=== PATIENT | male | born 1970 | race Caucasian/White ===

== ENCOUNTER 2025-01-01 20:00 | Emergency (ER) | payer OTHER ==
[~2025-01-01] VITALS: Ht 177.8 cm; Wt 65.8 kg
[2025-01-01 20:17] LABS: BASOPHILS 1.3 % (0-2); EOSINOPHILS 5.5 % (0-6); HEMATOCRIT 36.9 % (35.0-50.0); HEMOGLOBIN 12.7 g/dL (12.0-18.0); LYMPHOCYTES 29.7 % (24-44); MCH 30.5 (27-36); MCHC 34.4 g/dl (30-36); MCV 88.7 fl (81-99); MONOCYTES 11.8 % (0-12); NEUTROPHILS 51.7 % (39-80); PLATELET COUNT 416 K/uL (140-440); RBC 4.16 M/ul (4.3-5.7); RDW 14.9 (10.5-15.0)
[2025-01-01 20:33] LABS: ALBUMIN 3.6 g/dL (3.4-5.0); ALBUMIN/GLOBULIN RATIO 0.86 (1.1-2.4); ALKALINE PHOSPHATASE 84 U/L (46-116); ALT (SGPT) 41 U/L (14-59); ANION GAP 12.7 (7-21); AST (SGOT) 34 U/L (15-37); BILIRUBIN, TOTAL 0.3 mg/dL (0.2-1.0); BUN/CREATININE RATIO 25.97 (6.0-28.6); CALCIUM 9.3 mg/dL (8.5-10.1); CARBON DIOXIDE 29 mmol/L (21-32); CHLORIDE 101 mmol/L (98-107); CREATININE, SERUM 0.77 mg/dL (0.70-1.30); GLOMERULAR FILTRATION RATE,EST 106 mL/min (>60); MAGNESIUM 1.8 mg/dL (1.8-2.4); POTASSIUM 4.7 mmol/L (3.5-5.1); PROTEIN, TOTAL 7.8 g/dL (6.4-8.2); UREA NITROGEN 20 mg/dL (7-18)
[2025-01-01 21:17] LABS: CORONAVIRUS COVID-19 AG NEGATIVE (NEGATIVE); INFLUENZA A AG NEGATIVE (NEGATIVE); INFLUENZA B AG NEGATIVE (NEGATIVE)
[2025-01-01] MEDS ORDERED: atenoloL 50 MG TAB PO ONE (23:00)
[2025-01-01] MEDS ORDERED: hydroCHLOROthiazide 25 MG TAB PO ONE (23:00)
[2025-01-01] MEDS ORDERED: lisinopriL 20 MG TAB PO ONE (23:00)
--- OUTSIDE RECORDS SUMMARY | 2025-01-01 23:00 | XMS ---
PreManage Notification: KARLI VALADEZ Security Experience Specialist Events No recent Security Events currently on file CRITERIA MET - 6 ED Visits in 6 Months - [facility] - 2 Visits in 30 Days - [facility] - 3 Facilities in 90 Days CARE PROVIDERS CURT MORENO [facility] PHONE: [phone] [facility], Clinic/Center: [facility] PHONE: Unknown Germania has no Care Guidelines for this patient. E.Leanne VISIT COUNT (12 MO.) [address] [place] [address]. 3 [facility]. 2 [facility]. 1 [facility] 1 [facility] TOTAL 19 NOTE: Visits indicate total known visits. ED/UCC VISIT TRACKING (12 MO.) 01/01/2025 20:01 [facility] TYPE: Emergency COMPLAINT: - CHEST PAIN 12/28/2024 22:40 [facility] TYPE: Emergency COMPLAINT: - F10.939 DIAGNOSES: - Alcohol use, unspecified with withdrawal, unspecified - Unspecified abdominal pain - M32 12/24/2024 07:54 [facility] TYPE: Emergency COMPLAINT: - Seizure like activity DIAGNOSES: - Anesthesia of skin - Headache, unspecified - Other stimulant abuse, uncomplicated - Seizure like activity - Weakness 12/01/2024 17:01 [facility] TYPE: Emergency COMPLAINT: - EMS- Chest Pain DIAGNOSES: - Alcohol abuse, uncomplicated - Chest pain, unspecified - Alcohol Intoxication - EMS- Chest Pain 11/23/2024 19:27 [facility] TYPE: Emergency DIAGNOSES: - M30 11/18/2024 15:57 [facility] TYPE: Emergency COMPLAINT: - Abdominal pain DIAGNOSES: - Other psychoactive substance abuse, uncomplicated - Abdominal pain - Addiction Problem 10/29/2024 19:29 [facility] TYPE: Emergency COMPLAINT: - Anxiety DIAGNOSES: - Other psychoactive substance abuse, uncomplicated - Weakness - Addiction Problem - Anxiety 10/28/2024 20:34 [facility] TYPE: Emergency COMPLAINT: - Medical Screening DIAGNOSES: - Other stimulant abuse, uncomplicated - Unspecified convulsions - Medical Screening 07/14/2024 18:50 [facility] TYPE: Emergency COMPLAINT: - Groin Pain DIAGNOSES: - Groin Pain 07/02/2024 21:04 [facility] TYPE: Emergency COMPLAINT: - R07.9 DIAGNOSES: - Chest pain, unspecified - Solitary pulmonary nodule - m30 06/08/2024 19:23 [facility] TYPE: Emergency COMPLAINT: - medic DIAGNOSES: - Other chest pain - Palpitations - Person with feared health complaint in whom no diagnosis is made - Chest Pain - medic 06/05/2024 20:25 [facility] TYPE: Emergency COMPLAINT: - Syncope DIAGNOSES: - Alcohol dependence with intoxication, uncomplicated - Other specified abnormal findings of blood chemistry - Personal history of pulmonary embolism - Syncope and collapse - Syncope 06/03/2024 13:59 [facility] TYPE: Emergency COMPLAINT: - Seizures DIAGNOSES: - Abnormal electrocardiogram [ECG] [EKG] - Other specified abnormal findings of blood chemistry - Syncope and collapse - Weakness - possible seizure - Seizures 05/31/2024 15:48 [facility] TYPE: Emergency COMPLAINT: - Seizures, Combative DIAGNOSES: - Seizures - Seizures, Combative 04/18/2024 17:13 [facility] TYPE: Emergency COMPLAINT: - R- withdrawal DIAGNOSES: - Alcohol Problem - R- withdrawal 04/09/2024 20:03 [facility] TYPE: Emergency COMPLAINT: - Chest Pain DIAGNOSES: - Alcohol use, unspecified with intoxication, uncomplicated - Cannabis use, unspecified, uncomplicated - Encounter for screening, unspecified - Chest Pain - Medical Screening 04/07/2024 11:54 [facility] TYPE: Emergency COMPLAINT: - Abdominal pain DIAGNOSES: - Other specified abnormal findings of blood chemistry - Other stimulant abuse, uncomplicated - Abdominal pain - Chest Pain 04/05/2024 01:54 [facility] TYPE: Emergency COMPLAINT: - Altered Mental Status DIAGNOSES: - Altered mental status, unspecified - Epilepsy, unspecified, intractable, without status epilepticus - Other stimulant abuse, uncomplicated - Altered Mental Status 01/28/2024 13:28 [facility] TYPE: Emergency COMPLAINT: - Addiction Problem DIAGNOSES: - Other stimulant abuse, uncomplicated - Addiction Problem INPATIENT VISIT TRACKING (12 MO.) 11/23/2024 19:27 [facility] TYPE: Neurology COMPLAINT: - R53.1 DIAGNOSES: - Anesthesia of skin - Weakness 06/03/2024 20:17 [facility] TYPE: Medical Surgical COMPLAINT: - Seizures DIAGNOSES: - Abnormal electrocardiogram [ECG] [EKG] - Other pulmonary embolism without acute cor pulmonale - Other specified abnormal findings of blood chemistry - Weakness 05/31/2024 20:04 [facility] TYPE: Intensive Care COMPLAINT: - Seizures, Combative DIAGNOSES: - Acute respiratory failure with hypoxia - Alcohol abuse, uncomplicated - Other stimulant abuse, uncomplicated - Unspecified convulsions [email or web address]
[2025-01-01] MEDS ORDERED: AMOXICILLIN/CLAVULANATE K 875 MG HOME.PACK PO ONE (23:15)
[2025-01-01] MEDS ORDERED: AMOX TR-K CLV1 EAC1 PO ×2 (23:15)
[2025-01-01 23:27] VITALS: BP 137/97
--- NOTE | 2025-01-02 12:43 | EKG ---
[facility] [address] [place] [address] Signed Normal sinus rhythm Normal ECG No previous ECGs available Confirmed by Ismael Durham MD () on 01/02/2025 12:42:49 PM Electronically Signed By: ISMAEL DURHAM MD 01/02/25 1243 PATIENT NAME: KARLI VALADEZ Electrocardiogram DATE OF : 68 PHYSICIAN: ISMAEL DURHAM MD REPORT #: [id number] REPORT IS CONFIDENTIAL AND NOT TO BE RELEASED WITHOUT AUTHORIZATION
== END 2025-01-01 23:25 | disposition home or self-care (01) ==
LOC: ED 20:00
PROVIDERS: Internal Medicine
DX: J18.9 Pneumonia, unspecified organism (principal); R07.89 Other chest pain; Z86.73 Personal history of transient ischemic attack (TIA), and cerebral infarction without residual deficits; Z86.711 Personal history of pulmonary embolism; Z91.013 Allergy to seafood; Z91.041 Radiographic dye allergy status; Z88.8 Allergy status to other drugs, medicaments and biological substances
CPT/HCPCS: 36415; 71045; 80053; 83735; 83880; 84484; 85025; 93005; 93010; 99285-25

== ENCOUNTER 2025-01-04 15:48 | Emergency (ER) | payer OTHER ==
[~2025-01-04] VITALS: Ht 177.8 cm; Wt 65.3 kg
[~2025-01-04 15:48] MED LIST: AMOX TR-K CLV1 EAC1 PO
--- OUTSIDE RECORDS SUMMARY | 2025-01-04 15:54 | XMS ---
PreManage Notification: KARLI VALADEZ Security Hospital Cleaner Events No recent Security Events currently on file CRITERIA MET - 6 ED Visits in 6 Months - [facility] - 2 Visits in 30 Days - [facility] - 3 Facilities in 90 Days CARE PROVIDERS CURT MORENO [facility] PHONE: [phone] [facility], Clinic/Center: [facility] PHONE: Unknown Germania has no Care Guidelines for this patient. E.Leanne VISIT COUNT (12 MO.) [address] [place] [address] [facility] 2 [facility] 2 [facility]. 1 [facility] TOTAL 20 NOTE: Visits indicate total known visits. ED/UCC VISIT TRACKING (12 MO.) 01/04/2025 15:48 [facility] TYPE: Emergency COMPLAINT: - ALCOHOL WITHDRAWL 01/01/2025 20:01 [facility] TYPE: Emergency COMPLAINT: - CHEST PAIN DIAGNOSES: - Allergy status to other drugs, medicaments and biological substances - Allergy to seafood - Other chest pain - Personal history of pulmonary embolism - Personal history of transient ischemic attack (TIA), and cerebral infarction without residual deficits - Pneumonia, unspecified organism - Radiographic dye allergy status 12/28/2024 22:40 [facility] TYPE: Emergency COMPLAINT: - F10.939 DIAGNOSES: - Alcohol use, unspecified with withdrawal, unspecified - Unspecified abdominal pain - M32 12/24/2024 07:54 [facility] TYPE: Emergency COMPLAINT: - Seizure like activity DIAGNOSES: - Anesthesia of skin - Headache, unspecified - Other stimulant abuse, uncomplicated - Seizure like activity - Weakness 12/01/2024 17:01 [facility] TYPE: Emergency COMPLAINT: - EMS- Chest Pain DIAGNOSES: - Alcohol abuse, uncomplicated - Chest pain, unspecified - Alcohol Intoxication - EMS- Chest Pain 11/23/2024 19:27 [facility] TYPE: Emergency DIAGNOSES: - M30 11/18/2024 15:57 [facility] TYPE: Emergency COMPLAINT: - Abdominal pain DIAGNOSES: - Other psychoactive substance abuse, uncomplicated - Abdominal pain - Addiction Problem 10/29/2024 19:29 [facility] TYPE: Emergency COMPLAINT: - Anxiety DIAGNOSES: - Other psychoactive substance abuse, uncomplicated - Weakness - Addiction Problem - Anxiety 10/28/2024 20:34 [facility] TYPE: Emergency COMPLAINT: - Medical Screening DIAGNOSES: - Other stimulant abuse, uncomplicated - Unspecified convulsions - Medical Screening 07/14/2024 18:50 [facility] TYPE: Emergency COMPLAINT: - Groin Pain DIAGNOSES: - Groin Pain 07/02/2024 21:04 [facility] TYPE: Emergency COMPLAINT: - R07.9 DIAGNOSES: - Chest pain, unspecified - Solitary pulmonary nodule - m30 06/08/2024 19:23 [facility] TYPE: Emergency COMPLAINT: - medic DIAGNOSES: - Other chest pain - Palpitations - Person with feared health complaint in whom no diagnosis is made - Chest Pain - medic 06/05/2024 20:25 [facility] TYPE: Emergency COMPLAINT: - Syncope DIAGNOSES: - Alcohol dependence with intoxication, uncomplicated - Other specified abnormal findings of blood chemistry - Personal history of pulmonary embolism - Syncope and collapse - Syncope 06/03/2024 13:59 [facility] TYPE: Emergency COMPLAINT: - Seizures DIAGNOSES: - Abnormal electrocardiogram [ECG] [EKG] - Other specified abnormal findings of blood chemistry - Syncope and collapse - Weakness - possible seizure - Seizures 05/31/2024 15:48 [facility] TYPE: Emergency COMPLAINT: - Seizures, Combative DIAGNOSES: - Seizures - Seizures, Combative 04/18/2024 17:13 [facility] TYPE: Emergency COMPLAINT: - R- withdrawal DIAGNOSES: - Alcohol Problem - R- withdrawal 04/09/2024 20:03 [facility] TYPE: Emergency COMPLAINT: - Chest Pain DIAGNOSES: - Alcohol use, unspecified with intoxication, uncomplicated - Cannabis use, unspecified, uncomplicated - Encounter for screening, unspecified - Chest Pain - Medical Screening 04/07/2024 11:54 [facility] TYPE: Emergency COMPLAINT: - Abdominal pain DIAGNOSES: - Other specified abnormal findings of blood chemistry - Other stimulant abuse, uncomplicated - Abdominal pain - Chest Pain 04/05/2024 01:54 [facility] TYPE: Emergency COMPLAINT: - Altered Mental Status DIAGNOSES: - Altered mental status, unspecified - Epilepsy, unspecified, intractable, without status epilepticus - Other stimulant abuse, uncomplicated - Altered Mental Status 01/28/2024 13:28 [facility] TYPE: Emergency COMPLAINT: - Addiction Problem DIAGNOSES: - Other stimulant abuse, uncomplicated - Addiction Problem INPATIENT VISIT TRACKING (12 MO.) 11/23/2024 19:27 [facility] TYPE: Neurology COMPLAINT: - R53.1 DIAGNOSES: - Anesthesia of skin - Weakness 06/03/2024 20:17 [facility] TYPE: Medical Surgical COMPLAINT: - Seizures DIAGNOSES: - Abnormal electrocardiogram [ECG] [EKG] - Other pulmonary embolism without acute cor pulmonale - Other specified abnormal findings of blood chemistry - Weakness 05/31/2024 20:04 [facility] TYPE: Intensive Care COMPLAINT: - Seizures, Combative DIAGNOSES: - Acute respiratory failure with hypoxia - Alcohol abuse, uncomplicated - Other stimulant abuse, uncomplicated - Unspecified convulsions [email or web address]
[2025-01-04] MEDS ORDERED: HYDROXYZINE PAM25 MG PO (18:01)
[2025-01-04] MEDS ORDERED: chlordiazePOXIDE HCl 5 MG CAPSULE PO ONE (19:45)
[2025-01-04] MEDS ORDERED: THIAMINE HCL 100 MG TAB PO ONE (19:45)
[2025-01-04] MEDS ORDERED: FOLIC ACID 1 MG TAB PO ONE (19:45)
[2025-01-04] MEDS ORDERED: ACAMPROSATE CA333 MG PO (21:09)
[2025-01-04] MEDS ORDERED: LORazepam 1 MG HOME.PACK PO ONE (21:15)
[2025-01-04 21:30] VITALS: BP 162/90
== END 2025-01-04 21:30 | disposition home or self-care (01) ==
LOC: ED 15:48
DX: F41.9 Anxiety disorder, unspecified (principal); F10.11 Alcohol abuse, in remission; Z86.73 Personal history of transient ischemic attack (TIA), and cerebral infarction without residual deficits; Z86.711 Personal history of pulmonary embolism; Z91.013 Allergy to seafood; Z91.041 Radiographic dye allergy status; Z88.8 Allergy status to other drugs, medicaments and biological substances; Z79.899 Other long term (current) drug therapy
CPT/HCPCS: 99283